=== PATIENT | female | born 1985 | race Caucasian/White ===

== ENCOUNTER 2019-06-09 16:33 | Emergency (ER) | payer OTHER ==
[2019-06-09] MEDS ORDERED: fentaNYL 100 MCG/2 ML SDV IVPUSH ONE ×2 (17:00→17:44)
[2019-06-09] MEDS ORDERED: Sodium Chloride 0.9% 10 ML Syringe FLUSH PRN (17:00)
[2019-06-09] MEDS ORDERED: Sodium Chloride 0.9% 1,000 ML IV SCH (17:00)
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
--- NOTE | 2019-06-09 17:54 | CRLCR ---
INDICATION: Pain, question dislocation. Technique: Single-view. COMPARISON: None. FINDINGS: There is fracture of the proximal left humerus, at the humeral neck, with foreshortening, no displacement visible on the single view, but a lateral view is recommended for better visualization of the fracture relationships. The left clavicle and visualized portions of the left ribs appear intact. Dictated by Festus Banks MD @ Jun 09 2019 5:50PM Signed by Dr. Festus Banks @ Jun 09 2019 5:53PM
== END 2019-06-09 18:29 | disposition home or self-care (01) ==
LOC: JP.ED 16:33
DX: S42.272A Torus fracture of upper end of left humerus, initial encounter for closed fracture (principal); Z88.8 Allergy status to other drugs, medicaments and biological substances; V86.92XA Unspecified occupant of snowmobile injured in nontraffic accident, initial encounter
CPT/HCPCS: 73020; 96374; 96376; 99283; J3010; J7030